=== PATIENT | female | born 1950 | race Caucasian/White ===

== ENCOUNTER → 2016-12-15 | Outpatient (CLI) | payer OTHER | LOC: MC.RAD 07:40 | DX: Z12.31 Encounter for screening mammogram for malignant neoplasm of breast (principal) ==

== ENCOUNTER → 2017-05-01 | Outpatient (CLI) | payer OTHER | LOC: COL.VAS 13:53 | DX: R60.0 Localized edema (principal); V89.2XXA Person injured in unspecified motor-vehicle accident, traffic, initial encounter ==

== ENCOUNTER → 2017-06-29 | Outpatient (CLI) | payer OTHER, MEDICARE | LOC: COL.RAD 14:45 | DX: M47.816 Spondylosis without myelopathy or radiculopathy, lumbar region (principal); M43.16 Spondylolisthesis, lumbar region; G62.9 Polyneuropathy, unspecified ==

== ENCOUNTER → 2017-07-29 | Outpatient (CLI) | payer OTHER, MEDICARE | LOC: COL.RAD 08:09 | DX: M46.1 Sacroiliitis, not elsewhere classified (principal); R93.7 Abnormal findings on diagnostic imaging of other parts of musculoskeletal system; M48.02 Spinal stenosis, cervical region; M47.893 Other spondylosis, cervicothoracic region ==

== ENCOUNTER 2018-02-19 19:53 | Emergency (ER) | payer OTHER, MEDICARE ==
[~2018-02-19] VITALS: Ht 167.6 cm; Wt 73.2 kg
[2018-02-19 20:20] VITALS: BP 140/67; TEMP 99
[2018-02-19] MEDS ORDERED: LIPITOR 10MG10 MG PO (22:58)
[2018-02-19] MEDS ORDERED: NORCO 325 MG-51 TAB PO (22:58)
[2018-02-19] MEDS ORDERED: MOBIC15 MG PO (22:58)
[2018-02-19] MEDS ORDERED: OMEGA-3 1000 MG1 CAP PO (22:59)
[2018-02-19] MEDS ORDERED: GLUCOSAMINE & C1 TAB PO (22:59)
[2018-02-19] MEDS ORDERED: ASPIRIN 81M81 MG/TA2 PO (22:59)
[2018-02-19] MEDS ORDERED: MAGNESIUM250 M1 PO (23:00)
[2018-02-19] MEDS ORDERED: DOXYCYCLINE 10100 MG PO (23:12)
[2018-02-19] MEDS ORDERED: CEPHALEXIN500 M1 PO (23:12)
[2018-02-19 23:53] VITALS: PULSE 82
== END 2018-02-19 23:53 | disposition home or self-care (01) ==
LOC: COL.ER 19:53
DX: T81.43XA Infection following a procedure, organ and space surgical site, initial encounter (principal); Z96.641 Presence of right artificial hip joint

== ENCOUNTER 2018-03-17 08:00 | Outpatient (RCR) | payer OTHER, MEDICARE ==
[2018-02-27 09:07] VITALS: BP 119/48; PULSE 71; TEMP 97.8
[2018-02-28 08:25] VITALS: BP 139/54; PULSE 72; TEMP 98.8
[2018-03-01 08:31] VITALS: BP 153/53; PULSE 65; TEMP 97.5
[2018-03-01 08:37] LABS: HEMOGLOBIN 11.7 g/dl (12.5-16.0); MEAN CELL VOLUME 91 fl (80.0-100.0); MEAN CORPUSCULAR HEMOGLOBIN 29 pg (27.0-31.0); MEAN CORPUSCULAR HGB CONC 32 g/dl (33.0-37.0); PLATELET COUNT 256 K/mm3 (130-400); RED BLOOD COUNT 3.98 M/mm3 (4.10-5.30); REDCELL DISTRIBUTION WIDTH-CV 13.4 % (11.5-14.5)
[2018-03-01 08:49] LABS: HEMATOCRIT 36.2 % (37.0-47.0)
[2018-03-01 08:58] LABS: C-REACTIVE PROTEIN 0.8 mg/dL (0.0-0.9); CREATININE, serum 0.59 mg/dL (0.52-1.25)
[2018-03-02 08:34] VITALS: BP 127/55; PULSE 67; TEMP 97.6
[2018-03-03 07:13] VITALS: BP 134/68; PULSE 64; TEMP 98
[2018-03-04 08:14] VITALS: BP 153/72; PULSE 72; TEMP 97.4
[2018-03-05 08:10] VITALS: BP 142/55; PULSE 73; TEMP 98
[2018-03-06 08:28] VITALS: BP 138/55; PULSE 67; TEMP 97.1
[2018-03-07 08:36] VITALS: BP 119/54; PULSE 70; TEMP 98.2
[2018-03-08 08:18] LABS: HEMATOCRIT 38.6 % (37.0-47.0); HEMOGLOBIN 12.4 g/dl (12.5-16.0); MEAN CELL VOLUME 91 fl (80.0-100.0); MEAN CORPUSCULAR HEMOGLOBIN 29 pg (27.0-31.0); MEAN CORPUSCULAR HGB CONC 32 g/dl (33.0-37.0); MEAN PLATELET VOLUME 9.4 fl (7.4-10.4); PLATELET COUNT 263 K/mm3 (130-400); RED BLOOD COUNT 4.25 M/mm3 (4.10-5.30); REDCELL DISTRIBUTION WIDTH-CV 13.6 % (11.5-14.5)
[2018-03-08 08:30] LABS: BLOOD UREA NITROGEN 14 mg/dL (7-17); CREATINE KINASE 33 U/L (30-135); CREATININE, serum 0.63 mg/dL (0.52-1.25)
[2018-03-08 08:33] LABS: C-REACTIVE PROTEIN < 0.5 mg/dL (0.0-0.9)
[2018-03-08 09:23] VITALS: BP 119/54; PULSE 70; TEMP 98.2
[2018-03-09 08:40] VITALS: BP 122/65; PULSE 71; TEMP 97.9
[2018-03-10 08:14] VITALS: BP 129/62; PULSE 69; TEMP 97.9
[2018-03-11 08:06] VITALS: BP 132/55; PULSE 72; TEMP 97.7
[2018-03-12 08:05] VITALS: BP 138/55; PULSE 81; TEMP 98.2
[2018-03-13 08:00] VITALS: BP 130/72; PULSE 68; TEMP 97.7
[2018-03-14 08:00] VITALS: BP 120/55; PULSE 70; TEMP 98.2
[2018-03-15 08:15] VITALS: BP 123/100; PULSE 69; TEMP 97
[2018-03-16 08:33] LABS: HEMOGLOBIN 12.1 g/dl (12.5-16.0); MEAN CELL VOLUME 90 fl (80.0-100.0); MEAN CORPUSCULAR HEMOGLOBIN 30 pg (27.0-31.0); MEAN CORPUSCULAR HGB CONC 33 g/dl (33.0-37.0); MEAN PLATELET VOLUME 9.7 fl (7.4-10.4); PLATELET COUNT 188 K/mm3 (130-400); RED BLOOD COUNT 4.08 M/mm3 (4.10-5.30); REDCELL DISTRIBUTION WIDTH-CV 13.7 % (11.5-14.5)
[2018-03-16 08:36] LABS: HEMATOCRIT 36.8 % (37.0-47.0)
[2018-03-16 08:39] VITALS: BP 128/58; PULSE 65; TEMP 98
[2018-03-16 08:54] LABS: BLOOD UREA NITROGEN 16 mg/dL (7-17); CREATINE KINASE 46 U/L (30-135); CREATININE, serum 0.61 mg/dL (0.52-1.25)
[2018-03-16 09:01] LABS: C-REACTIVE PROTEIN < 0.5 mg/dL (0.0-0.9)
[~2018-03-17] VITALS: Ht 167.6 cm; Wt 74.0 kg
[~2018-03-17 08:00] MED LIST: ASPI325T6 PO; ASPIRIN 81M81 MG/TA2 PO; BIOTIN10000 MC1 PO; CEPHALEXIN500 M1 PO; COLACE 100100 MG/CAP PO; CUBICIN 500MG500 MG IV; DIFLUCAN50 MG PO; DOXYCYCLINE 10100 MG PO; EPA FISH OIL1 SGL PO; GLUCOSAMINE & C1 TAB PO; LIPITOR 10MG10 MG PO; MAGNESIUM250 M1 PO; MIRALAX PA17 GM/Dose PO; MOBIC15 MG PO; MULTI VITAMINS1 TAB PO; NORCO 325 MG-51 TAB PO; OMEGA-3 1000 MG1 CAP PO; PROBIOTIC FORMU1 CAP PO; SENOKOTXTRA17.2 MG PO
[2018-03-17 08:22] VITALS: BP 138/54; PULSE 70; TEMP 97.8
== END 2018-03-18 13:19 | disposition home or self-care (01) ==
LOC: EUO 08:00
PROVIDERS: Family Medicine
DX: S71.001A Unspecified open wound, right hip, initial encounter (principal); Z48.00 Encounter for change or removal of nonsurgical wound dressing; Z45.2 Encounter for adjustment and management of vascular access device; Z95.9 Presence of cardiac and vascular implant and graft, unspecified
CPT/HCPCS: J0878

== ENCOUNTER → 2021-10-09 | Outpatient (CLI) | payer MEDICARE, OTHER | LOC: MC.RAD 09-04 08:15 | DX: Z12.31 Encounter for screening mammogram for malignant neoplasm of breast (principal) ==